=== PATIENT | male | born 1975 | race Caucasian/White ===

== ENCOUNTER → 2020-04-06 | Outpatient (CLI) | payer OTHER | LOC: M.RAD 15:06 | PROVIDERS: ATTEND Internal Medicine | DX: M79.645 Pain in left finger(s) (principal); G89.29 Other chronic pain ==

== ENCOUNTER → 2020-07-12 | Outpatient (CLI) | payer OTHER | LOC: M.RAD 11:49 | PROVIDERS: ATTEND Internal Medicine | DX: M41.85 Other forms of scoliosis, thoracolumbar region (principal); R07.9 Chest pain, unspecified ==

== ENCOUNTER → 2021-10-29 | Outpatient (CLI) | payer OTHER | LOC: M.RAD 15:13 | PROVIDERS: ATTEND Internal Medicine | DX: J15.8 Pneumonia due to other specified bacteria (principal) ==

== ENCOUNTER 2021-11-06 19:55 | Inpatient (IN) | payer OTHER ==
[~2021-11-06] VITALS: Ht 182.9 cm; Wt 72.6 kg
[2021-11-06 20:08] VITALS: BP 151/67
[2021-11-06 20:45] LABS: ABSOLUTE LYMPHOCYTES 0.6 thou/uL (0.8-5.3); ABSOLUTE MONOCYTES 0.5 thou/uL (0.0-1.2); ABSOLUTE NEUTROPHILS 4.6 thou/uL (1.6-8.1); BASOPHILS 0.6 %; EOSINOPHILS 0.4 %; HEMATOCRIT 41.7 % (42.0-52.0); HEMOGLOBIN 14.4 gm/dL (14.0-18.0); LYMPHOCYTES 10.8 %; MCH 35.5 pg (26.0-34.0); MCHC 34.6 g/dL (28.0-37.0); MCV 102.6 fL (80.0-100.0); MONOCYTES 8.9 %; MPV 7.8 fl. (7.2-11.1); NUCLEATED RBCS 0 /100WBC; PLATELET COUNT* 136 thou/uL (150-400); POLYS 79.3 %; RBC 4.06 mil/uL (4.50-6.00); RDW-CV 13.8 % (10.5-14.5); WBC 5.8 thou/uL (4.0-11.0)
[2021-11-06 20:52] LABS: CALCIUM 9.5 mg/dL (8.5-10.1); CREATININE 0.8 mg/dL (0.6-1.3); POTASSIUM 3.7 mmol/L (3.5-5.1)
[2021-11-06 20:54] LABS: URINE BILIRUBIN NEGATIVE (Negative); URINE BLOOD TRACE (Negative); URINE CLARITY CLEAR; URINE COLOR YELLOW; URINE GLUCOSE-RANDOM NEGATIVE (Negative); URINE KETONES NEGATIVE (Negative); URINE LEUKOCYTES-REFLEX NEGATIVE (Negative); URINE NITRITE-REFLEX NEGATIVE (Negative); URINE PROTEIN NEGATIVE (Negative); URINE SPECIFIC GRAVITY <= 1.005 (1.005-1.030); URINE UROBILINOGEN 0.2 E.U./dl (0.2-1.0)
[2021-11-06 20:56] LABS: ALBUMIN 4.2 g/dL (3.4-5.0); MAGNESIUM 1.8 mg/dL (1.8-2.4); TOTAL BILIRUBIN 0.7 mg/dL (<0.1-1.0); TOTAL PROTEIN 7.5 g/dL (6.4-8.2)
[2021-11-06 21:00] LABS: AMP/METHAMP Negative (Negative); BARBITURATES Negative (Negative); BENZODIAZEPINES Negative (Negative); COCAINE Negative (Negative); METHADONE Negative (Negative); OPIATES Negative (Negative); PCP Negative (Negative); THC Negative (Negative)
[2021-11-06 21:08] LABS: BE 1.1 mmol/L (-2 to +3); PCO2 VENOUS 31.9 mmHg (41.0-51.0); PO2 VENOUS 77.4 mmHg (35.0-45.0)
[2021-11-07] VITALS (7 sets, daily range): BP systolic 133–145; BP diastolic 68–98
--- NOTE | 2021-11-07 10:02 | EKG ---
[place] [address] ELECTROCARDIOGRAM REPORT Name: SCOOTER ADAM Room: [place] [address] ADM IN [facility]#: [id number] Admission: 11/06/21 Attend Phys: Sita Richmond Discharge: Date of : 75 Date of Service: 11/06/212106 Report #: [id number] THIS REPORT FOR: //name// [facility] ED Test Date: 2021-11-06 Test Time: 21:07:15 Pat Name: SCOOTER ADAM Department: Room: [facility] Gender: M [employer] Tender: [place] : 1975 Requested By: Jared Somers Order Number: [id number] MD: Marcelino Petty Measurements Intervals [place] Rate: 107 P: 72 DE: 144 QRS: -12 QRSD: 93 T: 57 QT: 330 QTc: 441 Interpretive Statements Sinus tachycardia RSR' in V1 or V2, right VCD or RVH Baseline wander in lead(s) V2 No previous ECG available for comparison Electronically Signed On 11-07-2021 10:02:26 HL[employer] DEVELOPER by Marcelino Petty [email or web address] <ELECTRONICALLY SIGNED> By: Marcelino Petty MD, FACC 11/07/21 1002 06 06 aMrcelino Petty MD, FAC /EPI
[2021-11-08] VITALS: BP 141/95
[2021-11-08 04:37] LABS: HEMATOCRIT 39.8 % (42.0-52.0); HEMOGLOBIN 13.6 gm/dL (14.0-18.0); MCH 35.3 pg (26.0-34.0); MCHC 34.3 g/dL (28.0-37.0); MCV 103.1 fL (80.0-100.0); MPV 8.7 fl. (7.2-11.1); RBC 3.86 mil/uL (4.50-6.00); RDW-CV 13.6 % (10.5-14.5); WBC 3.7 thou/uL (4.0-11.0)
[2021-11-08 05:21] LABS: CALCIUM 8.7 mg/dL (8.5-10.1); CREATININE 0.8 mg/dL (0.6-1.3); MAGNESIUM 2.3 mg/dL (1.8-2.4); POTASSIUM 3.6 mmol/L (3.5-5.1); TOTAL BILIRUBIN 1.1 mg/dL (<0.1-1.0); TOTAL PROTEIN 7.3 g/dL (6.4-8.2)
[2021-11-08 08:20] VITALS: BP 129/95
[2021-11-08 11:54] VITALS: BP 140/97
[2021-11-08 15:40] VITALS: BP 136/91
[2021-11-08 20:49] VITALS: BP 127/90
[2021-11-09] VITALS: BP 127/96
[2021-11-09 04:00] VITALS: BP 123/81
[2021-11-09 05:25] LABS: HEMATOCRIT 41.5 % (42.0-52.0); MCH 35.3 pg (26.0-34.0); MCHC 33.8 g/dL (28.0-37.0); MCV 104.4 fL (80.0-100.0); MPV 9.1 fl. (7.2-11.1); RBC 3.97 mil/uL (4.50-6.00); RDW-CV 13.6 % (10.5-14.5); WBC 2.9 thou/uL (4.0-11.0)
[2021-11-09 05:46] LABS: ALBUMIN 3.7 g/dL (3.4-5.0); CALCIUM 8.8 mg/dL (8.5-10.1); CREATININE 0.7 mg/dL (0.6-1.3); MAGNESIUM 2.2 mg/dL (1.8-2.4); POTASSIUM 3.7 mmol/L (3.5-5.1); TOTAL BILIRUBIN 0.8 mg/dL (<0.1-1.0); TOTAL PROTEIN 6.8 g/dL (6.4-8.2)
[2021-11-09 14:21] VITALS: BP 115/80
[2021-11-09 19:29] VITALS: BP 114/85
[2021-11-09 20:30] VITALS: BP 127/89
[2021-11-10 00:17] VITALS: BP 113/81
[2021-11-10 04:35] VITALS: BP 125/90
[2021-11-10 04:35] LABS: HEMATOCRIT 38.2 % (42.0-52.0); HEMOGLOBIN 12.9 gm/dL (14.0-18.0); MCH 35.4 pg (26.0-34.0); MCHC 33.8 g/dL (28.0-37.0); MCV 104.9 fL (80.0-100.0); MPV 8.7 fl. (7.2-11.1); RBC 3.65 mil/uL (4.50-6.00); RDW-CV 13.7 % (10.5-14.5); WBC 4.2 thou/uL (4.0-11.0)
[2021-11-10 04:53] LABS: ALBUMIN 3.5 g/dL (3.4-5.0); CALCIUM 8.9 mg/dL (8.5-10.1); CREATININE 0.8 mg/dL (0.6-1.3); MAGNESIUM 2.1 mg/dL (1.8-2.4); POTASSIUM 3.8 mmol/L (3.5-5.1); TOTAL BILIRUBIN 0.8 mg/dL (<0.1-1.0); TOTAL PROTEIN 6.4 g/dL (6.4-8.2)
[2021-11-10 08:00] VITALS: BP 105/69
[2021-11-10] MEDS ORDERED: AMITRIPTYLINE H25 M2 PO (10:58)
[2021-11-10] MEDS ORDERED: XANAX 0.25 MG0.25 MG PO (10:58)
[2021-11-10] MEDS ORDERED: MAGIC MOUTHWASH BLM SW&SWALLOW (10:58)
[2021-11-10] MEDS ORDERED: MELATONIN5 M1 PO (10:58)
[2021-11-10 11:28] VITALS: BP 105/69
== END 2021-11-10 11:53 | disposition home or self-care (01) | DRG 897 ==
LOC: M.ERS 19:55 → M.2W 22:29 → M.TBA-ER 22:29 → M.2W 11-07 00:01
PROVIDERS: Internal Medicine; Physician Assistant Medical; ADMIT Internal Medicine; ATTEND Internal Medicine
DX: F10.239 Alcohol dependence with withdrawal, unspecified (principal); I10 Essential (primary) hypertension; R74.01 Elevation of levels of liver transaminase levels; Z20.822 Contact with and (suspected) exposure to COVID-19; B37.9 Candidiasis, unspecified; Z79.899 Other long term (current) drug therapy; Z28.21 Immunization not carried out because of patient refusal; Z88.8 Allergy status to other drugs, medicaments and biological substances; Z87.891 Personal history of nicotine dependence